=== PATIENT | male | born 1985 ===

== ENCOUNTER 2017-01-12 08:49 | Emergency (ER) | payer OTHER ==
[2017-01-12 09:00] VITALS: TEMP 98
[2017-01-12] MEDS ORDERED: Lidocaine 1% Inj (20ml) ONE (09:22)
[2017-01-12] MEDS ORDERED: Bacitracin 500 Units/gm Oint Foilpak UD ONE (09:42)
[2017-01-12] MEDS ORDERED: Bacitracin 500 Units/gm Oint Foilpak UD TOP ONE (09:42)
[2017-01-12 09:54] VITALS: BP 118/65; PULSE 71; RESP 17; O2SAT 99
--- NOTE | 2017-01-12 11:32 | C.PDOC ---
History Of Present Illness The patient, a 31 y/o male, presents to the ED for evaluation of a laceration which he sustained to the distal aspect of his left thumb prior to arrival. Patient states he was using a saw when he accidentally injured the area. Patient states bleeding was controlled on scene by applying pressure. Patient is right handed and denies being UTD with tetanus immunization. Otherwise, he denies any other injuries or extremity numbness/weakness. Time Seen by Provider: 01/12/17 09:42 Chief Complaint (Nursing): Upper Extremity Problem/Injury History Per: Patient History/Exam Limitations: no limitations Onset/Duration Of Symptoms: Hrs Current Symptoms Are (Timing): Still Present Quality: "Pain" Additional History Per: Patient Past Medical History Reviewed: Historical Data, Nursing Documentation, Vital Signs Vital Signs: Last Vital Signs Temp 98.0 F 01/12/17 08:51 Pulse 71 01/12/17 09:53 Resp 17 01/12/17 09:53 BP 118/65 01/12/17 09:53 Pulse Ox 99 01/12/17 11:41 - Medical History PMH: No Chronic Diseases Surgical History: No Surg Hx Family History: States: Unknown Family Hx - Social History Hx Alcohol Use: No Hx Substance Use: No - Immunization History Hx Tetanus Toxoid Vaccination: No Hx Influenza Vaccination: No Hx Pneumococcal Vaccination: No Review Of Systems Except As Marked, All Systems Reviewed And Found Negative. Skin: Positive for: Other (+laceration to distal aspect of left thumb. bleeding controlled on scene ) Neurological: Negative for: Weakness, Numbness Physical Exam - Physical Exam Appears: Non-toxic, No Acute Distress Skin: Normal Color, Warm, Dry, Other (2.5cm laceration to villa aspect of left thumb. No active bleeding. No foreign body noted. ) Head: Atraumatic Eye(s): bilateral: Normal Inspection Oral Mucosa: Moist Neck: Supple Extremity: Normal ROM, Capillary Refill (less than 2 seconds ) Pulses: Left Radial: Normal, Right Radial: Normal Neurological/Psych: Oriented x3, Normal Speech, Normal Cognition Gait: Steady ED Course And Treatment O2 Sat by Pulse Oximetry: 99 (on RA) Pulse Ox Interpretation: Normal Laceration - Laceration Repair villa aspect of left thumb Wound Length (In cm): 2.5 Description Of Wound: Linear Anesthesia: Lidocaine 1% Wound Examination: Irrigated With Saline, No FB With Wound Exploration, No Tendon Injury With Wound Exploration Wound Closure: Suture (four) Suture Technique And Material Used: Interrupted, Nylon (4-0) Wound Complexity: Simple Medical Decision Making Medical Decision Making: Impression: 31y/o male with laceration to thumb Plan: * Bacitracin TOP * Tetanus IM * reassess and disposition Progress Notes: 2.5 cm linear laceration to the villa aspect of left thumb. Local anesthesia achieved with 1% lidocaine without epinephrine. Wound irrigated with NS and explored. No FB seen. Area cleansed with 10% betadine. Four 4-0 interrupted Nylon sutures placed. Pt tolerated well with minimal bleeding. Bacitracin TOP applied. Patient received Tetanus immunization. On reassessment, patient is resting comfortably, showing no signs of distress, and is stable for discharge. Patient is advised to follow up with clinic/ED within a timely manner for further evaluation. Disposition - Disposition Referrals: [facility] [Outside] [facility] [Outside] Disposition: HOME/ ROUTINE Disposition Time: 09:40 Condition: IMPROVED Additional Instructions: Thank you for letting us take care of you today. Your provider was Dr. Eric. You were treated for a thumb laceration. The emergency medical care you received today was directed at your acute symptoms. If you were prescribed any medication, please fill it and take as directed. It may take several days for your symptoms to resolve. Return to the Emergency Department if your symptoms worsen, do not improve, or if you have any other problems. Please contact your doctor or call one of the physicians/clinics you have been referred to that are listed on the Patient Visit Information form that is included in your discharge packet. Bring any paperwork you were given at discharge with you along with any medications you are taking to your follow up visit. Our treatment cannot replace ongoing medical care by a primary care provider (PCP) outside of the emergency department. Thank you for allowing the [facility] team to be part of your care today. Keep wound clean and dry at all times. Stitches need to be removed in 1 week. Follow up in the clinic or the emergency room. Prescriptions: Cephalexin [cephalexin] 500 mg PO BID #14 cap Instructions: Care For Your Stitches (ED), Stitches Removal (ED) - Clinical Impression Clinical Impression: Laceration of left thumb - Scribe Statement The provider has reviewed the documentation as recorded by the Scribe (Nilsa Wiley) Provider Attestation: All medical record entries made by the Scribe were at my direction and personally dictated by me. I have reviewed the chart and agree that the record accurately reflects my personal performance of the history, physical exam, medical decision making, and the department course for this patient. I have also personally directed, reviewed, and agree with the discharge instructions and disposition.
== END 2017-01-12 09:55 | disposition home or self-care (01) ==
LOC: C.ER 08:49
DX: S61.012A Laceration without foreign body of left thumb without damage to nail, initial encounter (principal); W45.8XXA Other foreign body or object entering through skin, initial encounter

== ENCOUNTER 2017-01-19 08:43 | Emergency (ER) | payer OTHER ==
[2017-01-19 09:14] VITALS: BP 113/63; PULSE 72; RESP 20; TEMP 98.9; O2SAT 96; BMI 24.3
--- NOTE | 2017-01-19 09:20 | C.PDOC ---
History Of Present Illness 31 y/o male presents to the ED for suture removal from his left thumb. Patient states suture were placed on 01/12- he has been compliant with his prescribed antibiotics. He denies fever/chills, pain, swelling or drainage. Time Seen by Provider: 01/19/17 09:02 Chief Complaint (Nursing): Suture/Staple Removal History Per: Patient History/Exam Limitations: no limitations Onset/Duration Of Symptoms: Days Ago Current Symptoms Are (Timing): Better Location Of Injury: Left: Hand (thumb) Quality Of Symptoms: denies: Painful, Swollen, Draining Severity: Mild Additional History Per: Patient Past Medical History Reviewed: Historical Data, Nursing Documentation, Vital Signs Vital Signs: Last Vital Signs Temp 98.9 F 01/19/17 08:58 Pulse 72 01/19/17 08:58 Resp 20 01/19/17 08:58 BP 113/63 01/19/17 08:58 Pulse Ox 96 01/19/17 11:06 - Medical History PMH: No Chronic Diseases Surgical History: No Surg Hx Family History: States: No Known Family Hx - Social History Hx Alcohol Use: No Hx Substance Use: No - Immunization History Hx Tetanus Toxoid Vaccination: No Hx Influenza Vaccination: No Hx Pneumococcal Vaccination: No Review Of Systems Except As Marked, All Systems Reviewed And Found Negative. Constitutional: Negative for: Fever, Chills Cardiovascular: Negative for: Chest Pain Respiratory: Negative for: Shortness of Breath Skin: Positive for: Other (+suture removal from left thumb ) Neurological: Negative for: Weakness, Numbness Physical Exam - Physical Exam Appears: Well, Non-toxic, No Acute Distress Skin: Normal Color, Warm, Dry, Other (4 intact sutures placed on palmar aspect of left thumb. wound is well-healed and approximated. no erythema/tenderness/ discharge ) Head: Atraumatic Eye(s): bilateral: Normal Inspection Oral Mucosa: Moist Neck: Supple Cardiovascular: Rhythm Regular Respiratory: Normal Breath Sounds, No Rales, No Rhonchi, No Wheezing Back: Normal Inspection, No Vertebral Tenderness, No Paraspinal Tenderness Extremity: Normal ROM, No Tenderness, Capillary Refill (<2 seconds all digits ) , No Swelling Pulses: Left Radial: Normal, Right Radial: Normal Neurological/Psych: Oriented x3 Gait: Steady ED Course And Treatment O2 Sat by Pulse Oximetry: 96 (on RA) Pulse Ox Interpretation: Normal Progress Note: Four sutures removed successfully by me, patient tolerated well. Patient instructed to follow up with PMD/clinic in 1-2 days, and he understands he should return to ED if he develops symptoms such as fever, redness, drainage, pain. Reassessment Condition: Improved Disposition Counseled Patient/Family Regarding: Diagnosis, Need For Followup - Disposition Referrals: [facility] [Outside] Disposition: HOME/ ROUTINE Disposition Time: 09:30 Condition: STABLE Additional Instructions: FOLLOW UP WITH YOUR DOCTOR/CLINIC IN 1-2 DAYS RETURN TO ER IF YOU DEVELOP CONCERNING SYMPTOMS SUCH SWELLING, REDNESS, FEVER , DRAINAGE, ETC Instructions: Stitches Removal (ED) Print Language: ARABIC - POA Present On Arrival: None - Clinical Impression Clinical Impression: Removal of suture - Scribe Statement The provider has reviewed the documentation as recorded by the Ceci Wiley Provider Attestation: All medical record entries made by the Ceci were at my direction and personally dictated by me. I have reviewed the chart and agree that the record accurately reflects my personal performance of the history, physical exam, medical decision making, and the department course for this patient. I have also personally directed, reviewed, and agree with the discharge instructions and disposition.
== END 2017-01-19 09:40 | disposition home or self-care (01) ==
LOC: C.ER 08:43
DX: Z48.02 Encounter for removal of sutures (principal)